=== PATIENT | female | born 1975 | race Caucasian/White ===

== ENCOUNTER → 2021-08-13 11:00 | Outpatient (BNVA) | payer SELFPAY | PROVIDERS: PCP Nurse Practitioner Family; Referring Provider Nurse Practitioner Family; Visit Provider Nurse Practitioner | DX: S06.5X9S Traumatic subdural hemorrhage with loss of consciousness of unspecified duration, sequela (principal); R40.2431 Glasgow coma scale score 3-8, in the field [EMT or ambulance]; V86.0 Driver of special all-terrain or other off-road motor vehicle injured in traffic accident; F17.210 Nicotine dependence, cigarettes, uncomplicated; F10.20 Alcohol dependence, uncomplicated | CPT/HCPCS: 99204 ==

== ENCOUNTER → 2021-09-27 09:38 | Outpatient (BNVA) | payer SELFPAY | PROVIDERS: PCP Nurse Practitioner Family; Visit Provider Nurse Practitioner | DX: Z87.820 Personal history of traumatic brain injury (principal); F10.20 Alcohol dependence, uncomplicated; Z91.19 Patient's noncompliance with other medical treatment and regimen | CPT/HCPCS: 99213 ==

== ENCOUNTER → 2021-10-11 13:59 | Outpatient (BNVA) | payer SELFPAY | PROVIDERS: PCP Nurse Practitioner Family; Referring Provider Nurse Practitioner; Visit Provider Specialist | DX: R41.1 Anterograde amnesia (principal); S06.9X9S Unspecified intracranial injury with loss of consciousness of unspecified duration, sequela; Y93.9 Activity, unspecified | CPT/HCPCS: 95816 ==

== ENCOUNTER → 2022-01-13 13:59 | Outpatient (BNVA) | payer SELFPAY | PROVIDERS: PCP Nurse Practitioner Family; Visit Provider Nurse Practitioner Family | DX: R51.9 Headache, unspecified (principal); Z13.6 Encounter for screening for cardiovascular disorders; S06.9X9A Unspecified intracranial injury with loss of consciousness of unspecified duration, initial encounter; X58.XXXA Exposure to other specified factors, initial encounter | CPT/HCPCS: 80053; 80061; 84443; 85025 ==

== ENCOUNTER → 2022-08-17 11:31 | Outpatient (BNVA) | payer SELFPAY | PROVIDERS: Visit Provider Nurse Practitioner Family | DX: R11.2 Nausea with vomiting, unspecified (principal); K21.9 Gastro-esophageal reflux disease without esophagitis; Z13.6 Encounter for screening for cardiovascular disorders; S29.9XXA Unspecified injury of thorax, initial encounter; R07.81 Pleurodynia | CPT/HCPCS: 71100; 80053; 80061; 82607; 82746; 84443; 85025 ==

== ENCOUNTER 2022-09-16 08:30 | Emergency (ER) | payer MEDICAID, SELFPAY ==
[2022-09-16 08:34] VITALS: BP 139/99; PULSE 112; RESP 15; TEMP 36.9; O2SAT 98; BMI 21.9
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
--- NOTE | 2022-09-16 08:39 | ECG_ITS ---
[facility] Test Date: 2022-09-16 Pat Name: Radha Eddy Department: Room: Gender: Female Market Sales Manager: : 1975 Requested By: Roberto Goel Order Number: [id number] Jose MD: Blue Peters M.D. Measurements Intervals [place] Rate: 102 P: 83 MO: 136 QRS: 3 QRSD: 82 T: 67 QT: 351 QTc: 458 Interpretive Statements SINUS TACHYCARDIA POSSIBLE ANTERIOR MYOCARDIAL INFARCTION , PROBABLY OLD [30 ms Q WAVE IN V3/V4, OR R < 0.2 mV IN V4] ABNORMAL RHYTHM ECG No previous ECG available for comparison Electronically Signed On 09-19-2022 18:27:16 LIVERY CAR DRIVER by Blue Peters M.D. [id number]
[2022-09-16 08:58] LABS: Glucose Point of Care 95 mg/dL (70-110)
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
[2022-09-16 09:16] LABS: Basophils % 0.2 %; Eosinophils % 0.4 %; Hematocrit 37.8 % (37.0-47.0); Hemoglobin 13.1 g/dL (11.5-15.3); Lymphocytes # 2.3 10^3/uL (0.8-4.8); Lymphocytes % 22.3 %; Mean Corpuscular HGB Conc 34.7 g/dL (30.0-36.0); Mean Corpuscular Hemoglobin 35.8 pg (28.0-34.0); Mean Corpuscular Volume 103.3 fl (81-99); Mean Platelet Volume 9.7 fL (7.4-10.4); Monocytes # 0.8 10^3/uL (0.2-0.9); Monocytes % 7.4 %; Neutrophils # 7.14 10^3/uL (1.8-7.7); Neutrophils % 68.1 %; Nucleated Red Blood Cells % 0 %; Platelet Count 265 10^3/cmm (130-400); Red Blood Count 3.66 10^6/uL (4.1-5.3); Red Cell Distribution Width 12.2 % (12.1-15.1); White Blood Count 10.5 10^3/uL (4.0-10.0)
[2022-09-16 09:31] LABS: Alanine Aminotransferase 21 U/L (0-33); Albumin Level 2.8 g/dL (3.5-5.2); Alkaline Phosphatase 149 U/L (35-105); Aspartate Amino Transferase 33 U/L (0-32); Blood Urea Nitrogen 8 mg/dL (6-20); Calcium 9.2 mg/dL (8.5-10.5); Carbon Dioxide 27 mmol/L (22-29); Chloride 94 mmol/L (98-107); Glomerular Filtration Rate 88.9 mL/min (90-130); Glucose 102 mg/dL (65-115); Osmolality Calculated 275 mOsm/kg (285-295); Sodium 133 mmol/L (136-145); Total Bilirubin 0.6 mg/dL (0.15-1.2); Total Protein 6.8 g/dL (6.6-8.7)
[2022-09-16 09:34] VITALS: BP 152/103; O2SAT 100
[2022-09-16 10:00] VITALS: BP 161/99; O2SAT 100
[2022-09-16 10:30] VITALS: BP 161/99; O2SAT 99
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
== END 2022-09-16 10:44 | disposition home or self-care (01) ==
PROVIDERS: Emergency Provider Family Medicine; PCP Nurse Practitioner Family
DX: F44.9 Dissociative and conversion disorder, unspecified (principal); Z87.820 Personal history of traumatic brain injury
CPT/HCPCS: 36416; 70450; 71045; 80053; 82962; 85025; 93005; 99285

== ENCOUNTER → 2022-10-27 10:35 | Outpatient (BNVA) | payer MEDICAID, SELFPAY | PROVIDERS: PCP Nurse Practitioner Family; Visit Provider Nurse Practitioner Family | DX: N39.0 Urinary tract infection, site not specified (principal); Z87.440 Personal history of urinary (tract) infections; Z87.820 Personal history of traumatic brain injury; R26.9 Unspecified abnormalities of gait and mobility; M62.40 Contracture of muscle, unspecified site; R29.818 Other symptoms and signs involving the nervous system; R29.898 Other symptoms and signs involving the musculoskeletal system; F99 Mental disorder, not otherwise specified; E87.6 Hypokalemia; E53.8 Deficiency of other specified B group vitamins; R25.1 Tremor, unspecified | CPT/HCPCS: 80053; 81000; 85025 ==

== ENCOUNTER 2022-12-21 08:45 | Outpatient (CLI) | payer MEDICAID, SELFPAY ==
--- NOTE | 2022-12-21 08:45 | MR_ITS ---
WS: [id number] MRI BRAIN WITH AND WITHOUT CONTRAST HISTORY: R27.0 - Ataxia, unspecified, history of posttraumatic brain injury 2 years ago. COMPARISON: CT head 09/16/2022 TECHNIQUE: Multiplanar imaging performed through the brain with MultiHance 13 ml's IV. Diffusion imaging is normal. No acute infarct. Seen best on the FLAIR and T2 sequences is increased s ignal in the cortex of the RIGHT temporal lobe. There is mild volume loss. These changes are most con sistent with post traumatic brain injury with gliosis. There are a few small, nonspecific T2 foci abo ve the LEFT lateral ventricle in the white matter. No posterior fossa abnormality. No evidence for acute hemorrhage. Mild atrophy. Ventricles and extra-axial spaces are normal. Clivus and pituitary gland are normal. Visualized posterior fossa and brainstem are also normal. Postcontrast images are negative for masses or vascular malformations. Previously described possible meningioma towards the LEFT vertex does not enhance. This is probably benign calcification. There is a filling defect within the LEFT transverse sinus extending into the sigmoid sinus. This is a central filling defect and may be related to a chronic cerebral venous thrombosis. Paranasal sinuses: Very mild mucoperiosteal thickening throughout the paranasal sinuses. No air-fluid levels. Mastoid air cells: Bilateral mastoid air cell effusions, LEFT greater than RIGHT. Calvarium and scalp: Normal. MR/MR head wo/w con [id number] IMPRESSION: 1. No acute infarct. 2. Cortical signal abnormality in the RIGHT temporal lobe from gliosis. Consis tent with patient's history of prior brain trauma. No hemorrhage. 3. Filling defect within a small caliber LEFT transverse sinus and sigmoid sin us. Differential includes chronic DVT, less likely artifact from flow void. The re are no associated areas of venous infarct or hemorrhage. Consider follow-up MR venogram. 4. Mild bilateral mastoid air cell effusions.
== END 2022-12-21 08:46 | disposition home or self-care (01) ==
PROVIDERS: PCP Nurse Practitioner Family; Visit Provider Nurse Practitioner
DX: R27.0 Ataxia, unspecified (principal); R29.6 Repeated falls
CPT/HCPCS: 70553; A9577

== ENCOUNTER → 2023-02-06 14:19 | Outpatient (BNVA) | payer MEDICAID, SELFPAY | PROVIDERS: PCP Nurse Practitioner Family; Visit Provider Nurse Practitioner Family | DX: R05.9 Cough, unspecified (principal); R63.4 Abnormal weight loss; R11.0 Nausea; E53.8 Deficiency of other specified B group vitamins | CPT/HCPCS: 71046; 80053; 80061; 82607; 82746; 83615; 84443; 85025 ==

== ENCOUNTER 2023-02-14 14:36 | Outpatient (CLI) | payer MEDICAID, SELFPAY ==
--- NOTE | 2023-02-14 14:30 | MR_ITS ---
WS: [id number] MRI VENOGRAPHY WITHOUT GADOLINIUM ENHANCEMENT INDICATION: TIA and sepsis. Weakness upper extremities. Aphasia. gait changes TECHNIQUE: MR venography without gadolinium enhancement. Coronal 2-D [id number] and axial 2-D warner e-of-flight imaging. COMPARISON: MRI December 21, 2022 FINDINGS: Prior MRI was reviewed. Filling defect in the distal LEFT jugular vein extending into the s igmoid sinus and LEFT transverse sinus more prominent at the skull base. Today's examination demonstr ates small caliber LEFT transverse sinus with poor flow in the sigmoid sinus and distal LEFT jugular vein compatible with dural sinus thrombosis. RIGHT jugular vein is patent at the skull base. Normal RIGHT sigmoid sinus and transverse sinus. Norm al sagittal sinus. Straight sinus is patent. Normal internal cerebral veins. MR/[place] [id number] IMPRESSION: 1. Findings compatible with dural venous sinus thrombosis involving the LEFT s igmoid and transverse sinus extending into the distal jugular vein. Recommend u ltrasound of the neck to evaluate the LEFT neck jugular vein for thrombus. 2. Dural venous sinuses are otherwise patent. 3. No other suspicious findings.
== END 2023-02-14 14:37 | disposition home or self-care (01) ==
LOC: RAD 14:41
PROVIDERS: PCP Nurse Practitioner Family; Visit Provider Specialist
DX: R27.0 Ataxia, unspecified (principal); R29.6 Repeated falls; R93.0 Abnormal findings on diagnostic imaging of skull and head, not elsewhere classified
CPT/HCPCS: 70544

== ENCOUNTER → 2023-04-25 10:51 | Outpatient (BNVA) | payer MEDICAID, SELFPAY | PROVIDERS: PCP Nurse Practitioner Family; Visit Provider Nurse Practitioner Family | DX: E87.6 Hypokalemia (principal) | CPT/HCPCS: 80053 ==

== ENCOUNTER 2023-05-05 07:40 | Outpatient (CLI) | payer MEDICAID, SELFPAY ==
--- NOTE | 2023-05-05 08:15 | USCV_ITS ---
Radha Eddy Age: 48 Gender: F : 1975 Exam Date: 05/05/2023 08:24 Ordering Phys: Monie Shafer MD Technologist: TORREY Exam Location: [facility] [place] Indication: Eval for jugular thrombus. TBI HISTORY: Eval for jugular thrombus. TBI PROCEDURES: Venous duplex imaging was performed in bilateral upper extremities. The following venous structures were evaluated: internal jugular vein, subclavian vein, axillary vein, and brachial veins. In addition, the basilic vein, cephalic vein, radial vein, and ulnar vein. FINDINGS: Normal 2-D, color Doppler and phasicity noted in the bilateral upper extremity venous system extending from the internal jugular veins through the main forearms. No thrombosis or occlusion noted. CONCLUSIONS No bilateral upper extremity DVT. Dr. Cori Maria DO (Electronically Signed) Final Date: 05 May 2023 10:20 S
== END 2023-05-05 07:41 | disposition home or self-care (01) ==
LOC: RAD 07:43
PROVIDERS: PCP Nurse Practitioner Family; Visit Provider Psychiatry & Neurology Neurology
DX: S06.9X9A Unspecified intracranial injury with loss of consciousness of unspecified duration, initial encounter (principal); X58.XXXA Exposure to other specified factors, initial encounter; Z13.6 Encounter for screening for cardiovascular disorders
CPT/HCPCS: 93970

== ENCOUNTER → 2023-07-18 13:48 | Outpatient (BNVA) | payer MEDICAID, SELFPAY | PROVIDERS: PCP Nurse Practitioner Family; Visit Provider Psychiatry & Neurology Neurology | DX: S09.90XS Unspecified injury of head, sequela (principal); R27.0 Ataxia, unspecified; G08 Intracranial and intraspinal phlebitis and thrombophlebitis; G44.309 Post-traumatic headache, unspecified, not intractable; X58.XXXS Exposure to other specified factors, sequela | CPT/HCPCS: 80053; 82306; 82607; 82746; 83090; 83735; 83921; 84439; 84443; 84481; 85300; 85610; 86140; 86147; 86160; 86162; 86235; 86255; 86376; 86431 ==

== ENCOUNTER 2023-08-17 07:20 | Outpatient (CLI) | payer MEDICAID, SELFPAY ==
--- NOTE | 2023-08-17 07:24 | MR_ITS ---
WS: [id number] MRI BRAIN WITHOUT CONTRAST HISTORY: S06.9X9A - Unspecified intracranial injury with loss of c... COMPARISON: 12/19/2022 TECHNIQUE: Diffusion imaging, multiplanar T1, T2 and FLAIR imaging obtained. No evidence for acute infarct or hemorrhage. Jimenez-white matter differentiation is normal. Mild increased signal in the cortex of the RIGHT temporal lobe with mild volume loss. Similar to the prior examination. This is probably posttraumatic in etiology. No additional abnormalities are identi fied. There is only mild atrophy. No prior infarct. Ventricles and extra-axial spaces are normal. No inferior displacement of cerebellar tonsils. The sella turcica and pituitary gland are unremarkabl e. Normal appearance of the [place] on this unenhanced exam. The dural venous sinuses are not a s well visualized on this unenhanced exam. Venogram was performed separately today. Please see that r eport. Paranasal sinuses: Progression of paranasal sinus disease since the prior examination. Diffuse mucope riosteal thickening greatest involving the maxillary sinuses and sphenoid sinuses. No air-fluid level s. Mastoid air cells: Progression of fluid bilaterally within the mastoid air cells. Calvarium and scalp: Intact. IMPRESSION: 1. No acute intracranial hemorrhage or infarct. 2. Stable RIGHT temporal lobe cortical prior ischemic change. Stable since the prior examination of 12/21/2022. Probably posttraumatic due to the patient's history. 3. Progression of sinusitis and mastoid air cell effusions.
--- NOTE | 2023-08-17 07:30 | MR_ITS ---
WS: [id number] MR VENOGRAPHY HEAD 3-D noncontrast imaging performed through the cerebral veins. All imaging is reviewed. HISTORY: S06.9X9A - Unspecified intracranial injury with loss of c..., Hypoxia neuropathy. COMPARISON: Venogram 02/14/2023 and prior MRI brain 12/21/2022 Demonstration of the dural venous sinuses is limited. Previously described filling defects in the LEF T jugular vein and the sigmoid sinus and transverse sinus are reidentified. There is a very small vladislav iber LEFT transverse sinus with poor flow. Very similar appearance as the prior examination. Very sma ll caliber LEFT transverse sinus and sigmoid sinus with filling defects. The prior examination was a much better quality exam. These findings are most likely due to chronic thrombosis. The superior sagi ttal sinus appears normal. Reidentified is a flow artifact in the RIGHT sigmoid sinus. RIGHT jugular vein is patent at the skull base. Normal RIGHT sigmoid sinus and transverse sinus. Straight sinus is normal. IMPRESSION: 1. No significant interval change in the chronic appearing dural venous thrombosis involving the LEFT sigmoid and transverse sinus. 2. The remaining dural venous sinuses are unchanged.
== END 2023-08-17 07:21 | disposition home or self-care (01) ==
PROVIDERS: PCP Nurse Practitioner Family; Visit Provider Psychiatry & Neurology Neurology
DX: S06.9X9A Unspecified intracranial injury with loss of consciousness of unspecified duration, initial encounter (principal); X58.XXXA Exposure to other specified factors, initial encounter; G08 Intracranial and intraspinal phlebitis and thrombophlebitis; R27.0 Ataxia, unspecified
CPT/HCPCS: 70544; 70551

== ENCOUNTER 2024-01-13 21:04 | Emergency (ER) | payer MEDICAID, SELFPAY ==
[2024-01-13 21:07] VITALS: BP 123/75; PULSE 103; RESP 18; TEMP 37.1; O2SAT 98; BMI 17.5
[2024-01-13 21:26] LABS: Basophils % 0.7 %; Eosinophils # 0.4 10^3/uL (0.0-0.8); Eosinophils % 6.9 %; Hematocrit 39.3 % (36-47); Lymphocytes # 0.8 10^3/uL (0.8-4.8); Lymphocytes % 12.3 %; Mean Corpuscular HGB Conc 33.3 g/dL (30-55); Mean Corpuscular Hemoglobin 30.8 pg (27-33); Mean Corpuscular Volume 92.3 fl (85-98); Monocytes # 0.3 10^3/uL (0.2-0.9); Monocytes % 5.4 %; Neutrophils # 4.52 10^3/uL (1.8-7.7); Neutrophils % 74.4 %; Nucleated Red Blood Cells % 0 %; Platelet Count 210 10^3/cmm (157-399); Red Blood Count 4.26 10^6/uL (3.85-5.65); Red Cell Distribution Width 12.4 % (12.1-15.1); White Blood Count 6.08 10^3/uL (3.29-11.43)
[2024-01-13] MEDS: haloperidol inj 5 mg/mL INJ 1 mL 3 MG IVP (21:31)
[2024-01-13] MEDS: sodium chloride 0.9% 1,000 ML 999 ML IV ×2 (21:31→21:47)
[2024-01-13] MEDS: ondansetron 2 mg/ML SDV 2 mL 4 MG IVP (21:31)
--- NOTE | 2024-01-13 21:38 | PC.NURSE ---
Pt. has had no vomiting or nausea since phenergan given in ambulance. Pt. is laughing and joking with family on arrival
[2024-01-13 21:41] LABS: HCG, Serum Qual Negative (Negative)
[2024-01-13 21:46] LABS: Lactic Sepsis W/Reflex 3.8 mmol/L (0.5-2.2)
[2024-01-13 21:47] LABS: Alanine Aminotransferase 9 U/L (0-33); Albumin Level 3.9 g/dL (3.5-5.2); Alcohol Level 119 mg/dL (0-10); Alkaline Phosphatase 74 U/L (35-105); Anion Gap 19.3 (5-19); Aspartate Amino Transferase 16 U/L (0-32); Blood Urea Nitrogen 4 mg/dL (6-20); Calcium 8.6 mg/dL (8.5-10.5); Carbon Dioxide 23 mmol/L (22-29); Chloride 106 mmol/L (98-107); Creatinine Clr Calc Pharmacy 67.4714; Globulin 3.1 g/dL (1.3-4.6); Glomerular Filtration Rate 75.9 mL/min (90-130); Glucose 79 mg/dL (65-115); Lipase 20 U/L (13-60); Osmolality Calculated 296 mOsm/kg (285-295); Potassium 3.3 mmol/L (3.5-5.1); Sodium 145 mmol/L (136-145); Total Bilirubin 0.4 mg/dL (0.15-1.2)
--- NOTE | 2024-01-13 21:55 | ED_ITS ---
HPI - Headache 2 General: Chief Complaint: Headache Stated Complaint: ETOH, n/v Time Seen by Provider: 01/13/24 21:06 History of Present Illness: 48-year-old female with a history compli cated by traumatic hemorrhagic brain injury, cavernous sinus clot, chronic headaches, ataxia, presenting with headache and vomiting today. She notes that she has vomited at least 10 times. She has had some alcohol, unclear as to how much. 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 Evidently she is not because of the history of brain hemorrhage from trauma. She notes that she has had these episodes before, up to monthly, but the headache associated usually is not this bad. She has had promethazine at home, and in the ambulance without relief. Associated symptoms: Reports nausea and vomiting; Deny chest pain or fever(s) Review of Systems 2 Const: Denies: fever(s) Eyes: Reports: photophobia; Denies: change in vision Card: Denies: chest pain Resp: Denies: dyspnea GI: Reports: nausea and vomiting; Denies: abdominal pain or hematemesis Neuro: Reports: headache(s) and frequent falls (Chronic); Denies: numbness in extremities Psych: Reports: anxiety PFSH ED 2 PFSH: Medical History Psychiatric care Macrocytosis Frequent falls Ataxia SDH (subdural hematoma) Traumatic brain injury Surgical History No significant past surgical history Social History Smoking and tobacco/nicotine status: former use of tobacco/nicotine Quit status (tobacco/nicotine): has quit using Year quit tobacco: 2020 Former quit date comment: smoked 3 years Second hand smoke exposure: No Substance/Drug Use: never Adopted: No Caregiver/support person: No Lives independently: Yes Household members: spouse Housing: House Marital status: Number of children: 4 Highest education level completed: High School Graduate service: No Current occupational status: unemployed Physical Exam 2 Const: GENERAL APPEARANCE: disheveled, ill appearing and frail appearing (Somewhat) HENMT: COMMON NORMALS: normocephalic and Normal external nose present HEAD & SCALP: normocephalic FACE & SINUS: normal facial exam NOSE: Normal external nose present Eye: COMMON NORMALS: EOMs intact bilaterally Neck/C-Spine: GENERAL: Yes trachea midline Chest: CHEST: Yes Symmetrical chest wall rise Resp: COMMON NORMALS: normal respiratory effort, No use of accessory muscles and clear to auscultation bilaterally AUSCULTATION: clear to auscultation bilaterally Cardio: COMMON NORMALS: regular rhythm RATE: tachycardic RHYTHM: regular rhythm GI: COMMON NORMALS: Normal to inspection, nondistended, normoactive bowel sounds present and non-tender Extremity: COMMON NORMALS: no pedal edema Neuro: PRAFUL COMA SCALE: document GCS findings Praful coma scale eye opening: Spontaneous Praful coma scale verbal response: Orientated Praful coma scale motor response: Obey commands [place] coma scale total score: 15 GAIT: Yes Ataxic gait present MOTOR EXAM: Abnormal muscle tone present hypertonic: all Psych: ATTITUDE: Yes Other attitude/behavior findings present (Psych) (Anxious) Course 2 Vital Signs: Vital signs: Vital Signs Temperature 98.8 F 01/13/24 21:07 Pulse Rate 103 H 01/13/24 21:07 Respiratory Rate 18 01/13/24 21:07 Blood Pressure 123/75 01/13/24 21:07 Pulse Oximetry 98 01/13/24 21:07 Oxygen Delivery Me thod Room Air 01/13/24 21:07 MDM - Headache Medical Decision Making Observed gait is ataxic. She is somewhat twitchy and spastic in the bed, but has no focal neurological deficits. Her lactic acid is elevated, but without significant gap or acidosis, and potassium is mildly low. These are consistent with vomiting. However, CRP is 3, white blood cell count is 6. Her ethyl alcohol level is 119. She is given 2 L of fluid here, haloperidol and Zofran for nausea and vomiting, which has stopped currently. She still having some headache pain. Patient was given Depacon IV for headache with some improvement. She has been up to the bathroom. She is feeling improved and wishing to go home. CT venogram is performed showing chronic thrombosis of the left sigmoid sinus similar in appearance to 2022. No acute findings. Will allow home to return for any problems. Lab Data 01/13/24 21:19 01/13/24 21:19 Radiology Impressions Head CTA 01/13/24 22:45 IMPRESSION: 1. No acute intracranial abnormality identified. 2. Chronic thrombosis of the left sigmoid sinus extending into the left jugular bulb, with chronic small caliber left transverse sinus. Appearance similar to 2022. 3. Stable mild encephalomalacia along the lateral right temporal lobe. 4. Mild chronic sinusitis involving the ethmoid, maxillary, and sphenoid sinuses. No air-fluid levels. Laboratory Results WBC 6.08 10^3/uL (3.29-11.43) 01/13/24 21:19 RBC 4.26 10^6/uL (3.85-5.65) 01/13/24 21:19 Hgb 13.10 g/dL (11.27-16.99) 01/13/24 21:19 Hct 39.3 % (36-47) 01/13/24 21:19 MCV 92.3 fl (85-98) 01/13/24 21:19 MCH 30.8 pg (27-33) 01/13/24 21: MCHC 33.3 g/dL (30-55) 01/13/24 21:19 RDW 12.4 % (12.1-15.1) 01/13/24 21:19 Plt Count 210 10^3/cmm (157-399) 01/13/24 21:19 MPV 10.0 fL (7.4-10.4) 01/13/24 21:19 Neut % (Auto) 74.4 % 01/13/24 21:19 Lymph % (Auto) 12.3 % 01/13/24 21:19 [place] % (Auto) 5.4 % 01/13/24 21:19 Eos % (Auto) 6.9 % 01/13/24 21:19 Baso % (Auto) 0.7 % 01/13/24 21:19 Neut # (Auto) 4.52 10^3/uL (1.8-7.7) 01/13/24 21:19 Lymph # (Auto) 0.8 10^3/uL (0.8-4.8) 01/13/24 21:19 [place] # (Auto) 0.3 10^3/uL (0.2-0.9) 01/13/24 21:19 Eos # (Auto) 0.4 10^3/uL (0.0-0.8) 01/13/24 21:19 Baso # (Auto) 0.0 10^3/uL (0.0-0.1) 01/13/24 21:19 Nucleated RBC % (auto) 0 % 01/13/24 21:19 Nucleated RBCs # 0.0 /100WBC 01/13/24 21:19 Sodium 145 mmol/L (136-145) 01/13/24 21:19 Potassium 3.3 mmol/L (3.5-5.1) L 01/13/24 21:19 Chloride 106 mmol/L (98-107) 01/13/24 21:19 Carbon Dioxide 23 mmol/L (22-29) 01/13/24 21:19 Anion Gap 19.3 (5-19) H 01/13/24 21:19 BUN 4 mg/dL (6-20) L 01/13/24 21:19 Creatinine 0.8 mg/dL (0.5-0.9) 01/13/24 21:19 GFR Calculation 75.9 mL/min (90-130) L 01/13/24 21:19 Glucose 79 mg/dL (65-115) 01/13/24 21:19 Calculated Osmolality 296 mOsm/kg (285-295) H 01/13/24 21:19 Lactic Acid 3.8 mmol/L (0.5-2.2) H 01/13/24 21:19 Calcium 8.6 mg/dL (8.5-10.5) 01/13/24 21:19 Total Bilirubin 0.4 mg/dL (0.15-1.2) 01/13/24 21:19 AST 16 U/L (0-32) 01/13/24 21:19 ALT 9 U/L (0-33) 01/13/24 21:19 Alkaline Phosphatase 74 U/L (35-105) 01/13/24 21:19 C-Reactive Protein 3.0 mg/L (0.0-4.9) 01/13/24 21:19 Total Protein 7.0 g/dL (6.6-8.7) 01/13/24 21:19 Albumin 3.9 g/dL (3.5-5.2) 01/13/24 21:19 Globulin 3.1 g/dL (1.3-4.6) 01/13/24 21:19 Lipase 20 U/L (13-60) 01/13/24 21:19 HCG, Qual Negative (Negative) 01/13/24 21:19 Ethyl Alcohol 119 mg/dL (0-10) H 01/13/24 21:19 All radiology interpretation(s) finalized by discharge Discharge Plan Discharge Patient Disposition: Home Clinical Impression: Headaches due to old head injury, Cerebral venous sinus thrombosis Condition: Stable Prescriptions: New ondansetron 4 mg tablet,disintegrating 4 mg PO Q6H PRN (Reason: nausea and vomiting) Qty: 14 0RF No Action tizanidine 4 mg capsule 4 mg PO BID PRN (Reason: muscle spasticity) Qty: 90 2RF Rx Instructions: Take two tablet before bed nighly cholecalciferol (vitamin D3) 1,250 mcg (50,000 unit) capsule 50,000 unit PO .weekly Qty: 12 5RF potassium chloride [Klor-Con M20] 20 mEq tablet,ER particles/crystals 20 meq PO DAILY PRN Marijuana gummies 20 mg gel PO BID Rx Instructions: 2 10mg gummies gabapentin 100 mg capsule 100 mg PO TID Rx Instructions: Take two capsules by mouth three times daily. promethazine 25 mg tablet 25 mg PO TID PRN (Reason: nausea and vomiting) Qty: 60 2RF cetirizine [Zyrtec] 10 mg tablet 10 mg PO DAILY PRN (Reason: allergy symptoms) Qty: 30 11RF mecobalamin (vitamin B12) 1,000 mcg tablet,disintegrating See Rx Instructions .ROUTE .COMPLEX Qty: 30 2RF Dose Instruction: DISSOLVE ONE TABLET BY MOUTH DAILY Rx Instructions: DISSOLVE ONE TABLET BY MOUTH DAILY Discharge Orders: Discharge ED (Routine); Ordered 01/13/24 Ordered By: Yadiel Garcia Referrals: Franny Michel FNP-C [Primary Care Provider] - 1-3 days Patient Instructions: Acute Headache (ED), Opioid Safety, Pain Management Activity Restrictions/Additional Instructions: Given your vomiting, follow a clear liquid diet for the next 12 hours, then increase as tolerated. Consider taking nausea medication for the next 24 hours scheduled whether nauseated or not to keep your stomach settled. Return for any problems. See your doctor next week. Coding Level of Care Code ED Construction Materials Tester for Beata Baez
[2024-01-13] MEDS: valproic acid inj 500 MG in sodium chloride 0.9% 50 ML 55 MG IV (22:38)
--- NOTE | 2024-01-13 22:45 | CTR_ITS ---
PROCEDURE INFORMATION: Exam: CTA Head With Contrast, Venography Exam date and time: 01/13/2024 10:59 PM Age: 48 years old Clinical indication: Pain; Headache; Patient HX: CURTIS with n/v. History of cereberal venous sinus thrombus. ; Additional info: CURTIS. Known cavernous dvt. Venous phase instead of arterial. Previous imaging reports note left transverse sinus and sigmoid sinus thrombus. TECHNIQUE: Imaging protocol: Computed tomography angiography of the head with contrast. Exam focused on the veins. 3D rendering (Not supervised by radiologist): MIP and/or 3D reconstructed images were created by the technologist. Radiation optimization: All CT scans at this facility use at least one of these dose optimization techniques: automated exposure control; mA and/or kV adjustment per patient size (includes targeted exams where dose is matched to clinical indication); or iterative reconstruction. Contrast material: OMNI 350; Contrast volume: 100 ml; Contrast route: INTRAVENOUS (IV); COMPARISON: 1. MR head wo con* 08/17/2023 7:58 AM 2. MR venography head wo 08/17/2023 7:36 AM 3. MR venography head wo 02/14/2023 3:11 PM 4. MR head wo/w con 12/21/2022 9:11 AM RADIATION DOSE METRICS: Total DLP (mGy-cm): 2123.16 FINDINGS: Superior sagittal sinus: Patent. Straight sinus: Patent. Transverse sinuses: Persistent small caliber left transverse sinus. Patent right transverse sinus. Sigmoid sinuses: Persistent chronic thrombosis of the left sigmoid sinus. Patent right sigmoid sinus. Internal jugular veins: Persistent chronic thrombosis of the left jugular bulb, with very diminutive visualized superior portion of the left internal jugular vein. Visualized portion of the right internal jugular vein widely patent. Veins: No obvious cavernous sinus thrombosis. Brain: No acute intracranial hemorrhage or acute large territory infarct. Stable mild encephalomalacia along the lateral right temporal lobe. No midline shift. No abnormal extra-axial fluid collection. Cerebral ventricles: No ventriculomegaly. Bones/joints: Mild chronic sinusitis involving the ethmoid, maxillary, and sphenoid sinuses. No air-fluid levels. Soft tissues: Unremarkable. CT/CT angio head 37222 IMPRESSION: 1. No acute intracranial abnormality identified. 2. Chronic thrombosis of the left sigmoid sinus extending into the left jugular bulb, with chronic small caliber left transverse sinus. Appearance similar to 2022. 3. Stable mild encephalomalacia along the lateral right temporal lobe. 4. Mild chronic sinusitis involving the ethmoid, maxillary, and sphenoid sinuses. No air-fluid levels.
[2024-01-13] MEDS: iohexol 350 mg/mL 500 mL Btl (per mL) IV (23:02)
[2024-01-13 23:10] LABS: Reflex Lactate Order REFLEX LACTIC ORDERD
[2024-01-13 23:46] LABS: Add Urine Microscopic? NO; Charge for UA Resulting for Rev
[2024-01-13 23:50] LABS: Lactic Acid level (Lactate) 2.9 mmol/L (0.5-2.2)
[2024-01-13 23:54] LABS: Bilirubin Urine Neg (Negative); Blood Urine Neg (Negative); Glucose Urine UA Norm (Normal); Ketones Urine Negative (Negative); Leukocyte Esterase Urine Negative (Negative); Nitrate Urine Negative (Negative); Protein Urine Neg (Negative); Sulfosalicylic Acid Urine Negative (Negative); Urine Appearance Clear (CLEAR); Urine Color Colorless (Yellow); Urobilinogen Urine Neg (Negative); pH Urine 8 (5-7)
[2024-01-14 00:12] LABS: Amphetamines Screen Urine Negative (Negative); Barbiturates Screen Urine Negative (Negative); Benzodiazepines Screen Urine Negative (Negative); Cocaine Screen Urine Negative (Negative); Opiate Screen Urine Negative (Negative); PCP Screen Urine Negative (Negative); THC Screen Urine Positive (Negative)
== END 2024-01-14 00:02 | disposition home or self-care (01) ==
PROVIDERS: Emergency Provider Emergency Medicine; PCP Nurse Practitioner Family
DX: G44.89 Other headache syndrome (principal); G08 Intracranial and intraspinal phlebitis and thrombophlebitis; Z87.820 Personal history of traumatic brain injury; Z87.891 Personal history of nicotine dependence
CPT/HCPCS: 36415; 70496; 80053; 80306; 80307; 81003; 83605; 83690; 84703; 85025; 86140; 96365; 96375; 99285; J1630; J2405; J3411; J3490; J7030; Q9967

== ENCOUNTER → 2024-06-24 10:53 | Outpatient (BNVA) | payer MEDICAID, SELFPAY | PROVIDERS: PCP Nurse Practitioner Family; Visit Provider Nurse Practitioner Family | DX: G08 Intracranial and intraspinal phlebitis and thrombophlebitis (principal); S06.9XAD Unspecified intracranial injury with loss of consciousness status unknown, subsequent encounter; F32.A Depression, unspecified; E55.9 Vitamin D deficiency, unspecified; Z87.820 Personal history of traumatic brain injury; R11.0 Nausea; F43.12 Post-traumatic stress disorder, chronic | CPT/HCPCS: 80053; 80061; 82306; 82607; 84443; 85025 ==

== ENCOUNTER → 2024-07-29 15:27 | Outpatient (BNVA) | payer MEDICAID, SELFPAY | PROVIDERS: PCP Nurse Practitioner Family; Visit Provider Nurse Practitioner | DX: N18.2 Chronic kidney disease, stage 2 (mild) (principal) | CPT/HCPCS: 80048 ==

== ENCOUNTER 2024-09-15 20:50 | Observation (INO) | payer MEDICAID, SELFPAY ==
--- NOTE | 2024-09-15 20:53 | ECG_ITS ---
[employer] Test Date: 2024-09-15 Pat Name: Radha Eddy Department: Room: 276 Gender: Female [place]: : 1975 Requested By: Bharat Dunbar Order Number: [id number] Jose MD: Aden Charles M.D. Measurements Intervals [place] Rate: 56 P: 32 TX: 140 QRS: 2 QRSD: 100 T: 19 QT: 489 QTc: 473 Interpretive Statements SINUS BRADYCARDIA POSSIBLE ANTERIOR MYOCARDIAL INFARCTION , OF INDETERMINATE AGE [30 ms Q WAVE IN V3/V4, OR R < 0.2 mV IN V4] nonspecific ST changes Compared to ECG 09/16/2022 08:46:00 Sinus tachycardia no longer present Myocardial infarct finding still present Electronically Signed On 09-16-2024 19:36:18 SUPERVISOR OF COMMUNICATIONS by Aden Charles M.D. [email or web address]
[2024-09-15 20:54] VITALS: BP 78/48; PULSE 56; RESP 14; TEMP 36.4; O2SAT 95; BMI 19.8
[2024-09-15 21:00] VITALS: BP 92/52; PULSE 54; RESP 11; O2SAT 95
[2024-09-15 21:28] LABS: Basophils % 0.2 %; Eosinophils # 0.3 10^3/uL (0.0-0.8); Eosinophils % 6.6 %; Hematocrit 34.8 % (36-47); Lymphocytes # 1.9 10^3/uL (0.8-4.8); Mean Corpuscular HGB Conc 33.9 g/dL (30-55); Mean Corpuscular Hemoglobin 28.7 pg (27-33); Mean Corpuscular Volume 84.7 fl (85-98); Mean Platelet Volume 10.1 fL (7.4-10.4); Monocytes # 0.3 10^3/uL (0.2-0.9); Monocytes % 4.8 %; Neutrophils % 52.2 %; Nucleated Red Blood Cells % 0 %; Platelet Count 244 10^3/cmm (157-399); Red Blood Count 4.11 10^6/uL (3.85-5.65); Red Cell Distribution Width 12.7 % (12.1-15.1); White Blood Count 5.17 10^3/uL (3.29-11.43)
[2024-09-15] MEDS: sodium chloride 0.9% 1,000 ML 999 ML IV (21:34)
[2024-09-15] MEDS: hydrocortisone 100 mg/2 mL SDV IVP (21:34)
[2024-09-15 21:44] LABS: Lactic Sepsis W/Reflex 1.8 mmol/L (0.5-2.2)
[2024-09-15 21:56] LABS: Alanine Aminotransferase 15 U/L (0-33); Albumin Level 3.4 g/dL (3.5-5.2); Alkaline Phosphatase 84 U/L (35-105); Anion Gap 11.8 (5-19); Aspartate Amino Transferase 9 U/L (0-32); Blood Urea Nitrogen 10 mg/dL (6-20); C Reactive Protein 6.7 mg/L (0.0-4.9); Calcium 9.1 mg/dL (8.5-10.5); Carbon Dioxide 28 mmol/L (22-29); Chloride 100 mmol/L (98-107); Creatine Phosphokinase 25 U/L (26-192); Creatinine Clr Calc Pharmacy 67.5909; Globulin 2.8 g/dL (1.3-4.6); Glucose 108 mg/dL (65-115); Magnesium 1.6 mg/dL (1.7-2.3); Osmolality Calculated 284 mOsm/kg (285-295); Sodium 137 mmol/L (136-145); Thyroid Stimulating Hormone 1.08 uIU/mL (0.27-4.20); Total Bilirubin 0.4 mg/dL (0.15-1.2); Total Protein 6.2 g/dL (6.6-8.7)
[2024-09-15 21:58] LABS: Alcohol Level < 10 mg/dL (0-10); Potassium 2.8 mmol/L (3.5-5.1)
--- NOTE | 2024-09-15 22:16 | ED_ITS ---
HPI - Nausea/Vomiting/Diarrhea 2 General: Chief complaint: Nausea/Vomiting/Diarrhea Stated complaint: LOW BP Time Seen by Provider: 09/15/24 20:52 History of Present Illness: 49-year-old female presenting with vomit ing for the last couple of weeks. She had a low blood pressure at home, and was found to have a low blood pressure by EMS. She received 900 mL of lactated Ringer's on the way here. Her blood pressure still low. She is awake and talking. She says that this has happened in in the past, and she requires IV fluid and antiemetics for a couple of days. She denies abdominal pain. She denies headache. She has a history of a cavernous sinus thrombosis that is chronic, and has chronic headaches associated with this, but she does not currently. Related Data Home Medications Medication Instructions Recorded Confirmed Marijuana gummies 20 mg PO BID 09/12/23 09/15/24 gabapentin 100 mg capsule 100 mg PO TID 12/11/23 09/15/24 hydroxyzine HCl 50 mg tablet 50 mg PO QID PRN Anxiety 09/15/24 09/15/24 Previous Rx's Medication Instructions Recorded tizanidine 4 mg capsule 4 mg PO BID PRN muscle spasticity 07/18/23 #90 caps cholecalciferol (vitamin D3) 1,250 50,000 unit PO .weekly #12 caps 09/27/23 mcg (50,000 unit) capsule cetirizine 10 mg tablet (Zyrtec) 10 mg PO DAILY PRN allergy 12/11/23 symptoms #30 tabs mecobalamin (vitamin B12) 1,000 See Rx Instructions .Route 04/23/24 mcg disintegrating .COMPLEX #30 tabs tablet,sublingual propranolol 20 mg tablet 20 mg PO BID PRN anxiety #60 tabs 07/23/24 quetiapine 50 mg tablet (Seroquel) 50 mg PO .HS #30 tabs 07/23/24 magnesium oxide 400 mg PO BID #60 tabs 08/07/24 potassium chloride 8 mEq 8 meq PO DAILY #30 caps 08/07/24 capsule,extended release Allergies Allergy/AdvReac Type Severity Reaction Status Date / Time tree and shrub pollen Allergy Severe ALGY-Difficulty Verified 08/20/24 09:42 Breathing grass pollen Allergy Intermediate ALGY-Rash Verified 08/20/24 09:42 animal dander Allergy Mild ALGY-Difficulty Verified 08/20/24 09:42 Breathing fresh fruits Allergy Mild ALGY-Rash Uncoded 08/20/24 09:42 PFSH ED 2 PFSH: Medical History (Updated 09/16/24 @ 04:17 by Yadiel Garcia DO) Chronic post-traumatic stress disorder Cerebral venous sinus thrombosis Psychiatric care Macrocytosis Frequent falls Ataxia SDH (subdural hematoma) Traumatic brain injury Surgical History No significant past surgical history Social History Smoking and tobacco/nicotine status: former use of tobacco/nicotine Quit status (tobacco/nicotine): has quit using Year quit tobacco: 2020 Former quit date comment: smoked 3 years Second hand smoke exposure: No Substance/Drug Use: never Adopted: No Caregiver/support person: No Lives independently: Yes Household members: spouse Housing: House Marital status: Number of children: 4 Highest education level completed: High School Graduate service: No Current occupational status: unemployed Do you think of yourself as: Straight/Heterosexual Current gender identity: Female Noemy/Scientologist: Other Special noemy needs: No Agree to transfusion: Yes Physical Exam 2 Const: COMMON NORMALS: no acute distress GENERAL APPEARANCE: cooperative; not ill appearing and not frail appearing HENMT: COMMON NORMALS: normocephalic, atraumatic and Normal external nose present HEAD & SCALP: normocephalic and atraumatic FACE & SINUS: normal facial exam and face symmetric NOSE: Normal external nose present Eye: COMMON NORMALS: Equal, round and reactive pupils present and EOMs intact bilaterally PUPIL: Yes Equal, round and reactive pupils present Neck/C-Spine: GENERAL: Yes trachea midline Chest: CHEST: Yes Symmetrical chest wall rise Resp: COMMON NORMALS: normal respiratory effort, No retractions, No use of accessory muscles and clear to auscultation bilaterally AUSCULTATION: clear to auscultation bilaterally Cardio: COMMON NORMALS: regular rate and regular rhythm RATE: regular rate RHYTHM: regular rhythm GI: COMMON NORMALS: Normal to inspection, nondistended, normoactive bowel sounds present Extremity: COMMON NORMALS: no pedal edema Neuro: PRAFUL COMA SCALE: document GCS findings Praful coma scale eye opening: Spontaneous [place] coma scale verbal response: Orientated Praful coma scale motor response: Obey commands Praful coma scale total score: 15 S ENSORY EXAM: Yes extremities (intact) Psych: COMMON NORMALS: speech normal SPEECH: Yes normal speech Skin: COMMON NORMALS: no rashes or lesions noted GENERAL SKIN EXAM: no rashes or lesions noted Course 2 Vital Signs: Vital signs: Vital Signs Temperature 97.8 F 09/16/24 03:45 Pulse Rate 52 L 09/16/24 03:45 Respiratory Rate 19 H 09/16/24 03:45 Blood Pressure 123/76 09/16/24 03:45 Pulse Oximetry 95 09/16/24 03:45 Oxygen Delivery Me thod Room Air 09/16/24 03:45 MDM - Nausea/Vomiting/Diarrhea Medical Decision Making 2 L fluid bolus has been ordered. Blood pressure is still low. Her potassium is 2.8. This is repleted. TSH is 1. Ethyl alcohol is less than 10. Bicarbonate is 28. Creatinine is 0.9. Blood sugar is 108. Lactic acid is 1.8. Blood pressures remained soft after a total of 3 L of fluid. Drug screen is positive for marijuana which could be contributing to vomiting. Urinalysis is negative. CRP is only 6.7. With improvement in her blood pressure, she will be observed, she will go to the floor, for continued IV fluid hydration. Hospitalist has seen the patient in the ER. Lab Data 09/15/24 20:18 09/15/24 20:18 Laboratory Results WBC 5.17 10^3/uL (3.29-11.43) 09/15/24 20:18 RBC 4.11 10^6/uL (3.85-5.65) 09/15/24 20:18 Hgb 11.80 g/dL (11.27-16.99) 09/15/24 20:18 Hct 34.8 % (36-47) L 09/15/24 20:18 MCV 84.7 fl (85-98) L 09/15/24 20:18 MCH 28.7 pg (27-33) 09/15/24 20:18 MCHC 33.9 g/dL (30-55) 09/15/24 20:18 RDW 12.7 % (12.1-15.1) 09/15/24 20:18 Plt Count 244 10^3/cmm (157-399) 09/15/24 20:18 MPV 10.1 fL (7.4-10.4) 09/15/24 20:18 Neut % (Auto) 52.2 % 09/15/24 20:18 Lymph % (Auto) 36.0 % 09/15/24 20:18 [place] % (Auto) 4.8 % 09/15/24 20:18 Eos % (Auto) 6.6 % 09/15/24 20:18 Baso % (Auto) 0.2 % 09/15/24 20:18 Neut # (Auto) 2.70 10^3/uL (1.8-7.7) 09/15/24 20:18 Lymph # (Auto) 1.9 10^3/uL (0.8-4.8) 09/15/24 20:18 [place] # (Auto) 0.3 10^3/uL (0.2-0.9) 09/15/24 20:18 Eos # (Auto) 0.3 10^3/uL (0.0-0.8) 09/15/24 20:18 Baso # (Auto) 0.0 10^3/uL (0.0-0.1) 09/15/24 20:18 Nucleated RBC % (auto) 0 % 09/15/24 20:18 Nucleated RBCs # 0.0 /100WBC 09/15/24 20:18 Sodium 137 mmol/L (136-145) 09/15/24 20:18 Potassium 2.8 mmol/L (3.5-5.1) L* 09/15/24 20:18 Chloride 100 mmol/L (98-107) 09/15/24 20:18 Carbon Dioxide 28 mmol/L (22-29) 09/15/24 20:18 Anion Gap 11.8 (5-19) 09/15/24 20:18 BUN 10 mg/dL (6-20) 09/15/24 20:18 Creatinine 0.9 mg/dL (0.5-0.9) 09/15/24 20:18 GFR Calculation 66.0 mL/min (90-130) L 09/15/24 20:18 Glucose 108 mg/dL (65-115) 09/15/24 20:18 Calculated Osmolality 284 mOsm/kg (285-295) L 09/15/24 20:18 Lactic Acid 1.8 mmol/L (0.5-2.2) 09/15/24 20:18 Calcium 9.1 mg/dL (8.5-10.5) 09/15/24 20:18 Magnesium 1.6 mg/dL (1.7-2.3) L 09/15/24 20:18 Total Bilirubin 0.4 mg/dL (0.15-1.2) 09/15/24 20:18 AST 9 U/L (0-32) 09/15/24 20:18 ALT 15 U/L (0-33) 09/15/24 20:18 Alkaline Phosphatase 84 U/L (35-105) 09/15/24 20:18 Creatine Kinase 25 U/L (26-192) L 09/15/24 20:18 C-Reactive Protein 6.7 mg/L (0.0-4.9) H 09/15/24 20:18 Total Protein 6.2 g/dL (6.6-8.7) L 09/15/24 20:18 Albumin 3.4 g/dL (3.5-5.2) L 09/15/24 20:18 Globulin 2.8 g/dL (1.3-4.6) 09/15/24 20:18 TSH 1.08 uIU/mL (0.27-4.20) 09/15/24 20:18 TSH 1.10 uIU/mL (0.27-4.20) 09/15/24 20:18 Random Cortisol 5.27 ug/dL (2.47-19.5) 09/15/24 20:18 Urine Color Yellow (Yellow) 09/15/24 21:55 Urine Appearance Clear (CLEAR) 09/15/24 21:55 Urine pH 6.5 (5-7) 09/15/24 21:55 Ur Specific [place] 1.002 (1.005-1.030) L 09/15/24 21:55 Urine Protein Negative (Negative) 09/15/24 21:55 Urine Glucose (UA) Negative (Normal) 09/15/24 21:55 Urine Ketones Negative (Negative) 09/15/24 21:55 Urine Blood Negative (Negative) 09/15/24 21:55 Urine Nitrate Negative (Negative) 09/15/24 21:55 Urine Bilirubin Negative (Negative) 09/15/24 21:55 Urine Urobilinogen 0.2 mg/dL (Negative) 09/15/24 21:55 Ur Leukocyte Esterase Negative (Negative) 09/15/24 21:55 Urine RBC 0-2 /hpf (0-2) 09/15/24 21:55 Urine WBC 0-5 /hpf (0-5) 09/15/24 21:55 Ur Squamous Epith Cells 0-5 /hpf (0-5) 09/15/24 21:55 Amorphous Sediment Not Reportable 09/15/24 21:55 Urine Bacteria None seen /hpf (NONE) 09/15/24 21:55 Hyaline Casts 0-4 /lpf H 09/15/24 21:55 Salicylates < 0.3 mg/dL (3-10) L 09/15/24 20:18 Urine Opiates Screen Negative ng/mL (Negative) 09/15/24 21:55 Acetaminophen < 5.0 ug/mL (10-30) L 09/15/24 20:18 Ur Barbiturates Screen Negative ng/mL (Negative) 09/15/24 21:55 Ur Phencyclidine Scrn Negative ng/mL (Negative) 09/15/24 21:55 Ur Amphetamines Screen Negative ng/mL (Negative) 09/15/24 21:55 U Benzodiazepines Scrn Negative ng/mL (Negative) 09/15/24 21:55 Urine Cocaine Screen Negative ng/mL (Negative) 09/15/24 21:55 U Marijuana (THC) Screen Positive ng/mL (Negative) H 09/15/24 21:55 Ethyl Alcohol < 10 mg/dL (0-10) 09/15/24 20:18 No radiology studies performed this visit Discharge Plan Discharge Patient Disposition: Admitted As Inpatient Admit Provider: Chace Enriquez Clinical Impression: Headaches due to old head injury, Hypokalemia, Hypotension Condition: Stable Coding Level of Care Code ED Electric Power Line Repairer for Beata Baez
[2024-09-15 22:24] VITALS: BP 87/55; PULSE 54; RESP 18; O2SAT 98
[2024-09-15 22:30] LABS: Bilirubin Urine Negative (Negative); Blood Urine Negative (Negative); Glucose Urine UA Negative (Normal); Ketones Urine Negative (Negative); Leukocyte Esterase Urine Negative (Negative); Nitrate Urine Negative (Negative); Protein Urine Negative (Negative); Specific Gravity, Urine 1.002 (1.005-1.030); Urine Appearance Clear (CLEAR); Urine Color Yellow (Yellow); Urobilinogen Urine 0.2 mg/dL (Negative); pH Urine 6.5 (5-7)
[2024-09-15 22:34] VITALS: BP 102/70; PULSE 62; RESP 18; O2SAT 98
[2024-09-15 22:35] LABS: Add Urine Microscopic? YES; Bacteria Urine None Seen /hpf; Hyaline Casts Urine 0-4 /lpf; RBC Urine 0-2 /hpf (0-2); Squamous Epithelial Cell Urine 0-5 /hpf (0-5); WBC Urine 0-5 /hpf (0-5)
[2024-09-15 22:39] LABS: Amphetamines Screen Urine Negative (Negative); Barbiturates Screen Urine Negative (Negative); Benzodiazepines Screen Urine Negative (Negative); Cocaine Screen Urine Negative (Negative); Opiate Screen Urine Negative (Negative); PCP Screen Urine Negative (Negative); THC Screen Urine Positive (Negative)
--- NOTE | 2024-09-15 22:57 | P.HP_ITS ---
Providers/Chief Complaint 2 Admitting Physician: Chace Enriquez MD Primary Care Provider: CHRIS Ramirez Chief Complaint: LOW BP History of Present Illness Radha Eddy is a 49 year old female with history of sinus venous thrombosis with stability over 1 year ago, past history of diagnosis of schizophrenia, marijuana use in the form of Gummies with history of vomiting, recurrent headaches, traumatic brain injury with history of subdurals that reports she comes in with some vomiting. She denies headache. She states this happens every once in a while and has been going on for quite a while. She has had some low blood pressures lately, and was seen in clinic on August 20. It was inferred at that time she may need to stop her propranolol but she did not do that. In the emergency department she really denies any complaints. The emergency department physician was very concerned her blood pressure was low, with systolic less than 90. She had received approximately 2.9 L and when I saw her multiple blood pressures had a systolic over 90 and a mean arterial blood pressure greater than 65. She has difficulty giving a history, but from what I gather she lives at multiple different family members homes, with her some of the time and daughter some of the time. It looks like she has refused care quite a bit when seeing physicians in clinic. Again she denies any current feelings of nausea, current headache, current dizziness, diarrhea, fever. She is a poor historian. Of note she has several pill bottles in her purse. 1 has multiple different pills in it, which she relates some of them are her muscle relaxant she is pretty sure she has not taken lately. Review of Systems 2 General: Reports: 10 or more systems reviewed and unremarkable except in HPI and below Narrative: Nontoxic-appearing Medications/Allergies Home Medications Medication Instructions Recorded Confirmed Last Taken Type tizanidine 4 mg capsule 4 mg PO BID PRN muscle spasticity 07/18/23 08/20/24 Unknown Rx #90 caps Marijuana gummies PO BID 09/12/23 08/20/24 Unknown History cholecalciferol (vitamin D3) 1,250 50,000 unit PO .weekly #12 caps 09/27/23 08/20/24 Unknown Rx mcg (50,000 unit) capsule cetirizine 10 mg tablet (Zyrtec) 10 mg PO DAILY PRN allergy 12/11/23 08/20/24 Unknown Rx symptoms #30 tabs gabapentin 100 mg capsule 100 mg PO TID 12/11/23 08/20/24 Unknown History ondansetron 4 mg disintegrating 4 mg PO Q6H PRN nausea and 01/13/24 08/20/24 Unknown Rx tablet vomiting #14 tabs mecobalamin (vitamin B12) 1,000 See Rx Instructions .Route 04/23/24 08/20/24 Unknown Rx mcg disintegrating .COMPLEX #30 tabs tablet,sublingual promethazine 25 mg tablet 25 mg PO TID PRN nausea and 06/24/24 08/20/24 Unknown Rx vomiting #60 tabs propranolol 20 mg tablet 20 mg PO BID PRN anxiety #60 tabs 07/23/24 08/20/24 Unknown Rx quetiapine 50 mg tablet (Seroquel) 50 mg PO .HS #30 tabs 07/23/24 08/20/24 Unknown Rx magnesium oxide 400 mg PO BID #60 tabs 08/07/24 08/20/24 Unknown Rx potassium chloride 8 mEq 8 meq PO DAILY #30 caps 08/07/24 08/20/24 Unknown Rx capsule,extended release Allergies Allergy/AdvReac Type Severity Reaction Status Date / Time tree and shrub pollen Allergy Severe ALGY-Difficulty Verified 08/20/24 09:42 Breathing grass pollen Allergy Intermediate ALGY-Rash Verified 08/20/24 09:42 animal dander Allergy Mild ALGY-Difficulty Verified 08/20/24 09:42 Breathing fresh fruits Allergy Mild ALGY-Rash Uncoded 08/20/24 09:42 PFSH Acute 2 PFSH: Medical History (Updated 09/15/24 @ 23:07 by Chace Enriquez MD) Chronic post-traumatic stress disorder Cerebral venous sinus thrombosis Psychiatric care Macrocytosis Frequent falls Ataxia SDH (subdural hematoma) Traumatic brain injury Surgical History No significant past surgical history Social History Smoking and tobacco/nicotine status: former use of tobacco/nicotine Quit status (tobacco/nicotine): has quit using Year quit tobacco: 2020 Former quit date comment: smoked 3 years Second hand smoke exposure: No Substance/Drug Use: never Adopted: No Caregiver/support person: No Lives independently: Yes Household members: spouse Housing: House Marital status: Number of children: 4 Highest education level completed: High School Graduate service: No Current occupational status: unemployed Do you think of yourself as: Straight/Heterosexual Current gender identity: Female Noemy/Orthodoxy: Other Special noemy needs: No Agree to transfusion: Yes Vitals/I&O/Wt Last Vital Signs Temp 97.5 F L 09/15/24 20:54 Pulse 62 09/15/24 22:34 Resp 18 09/15/24 22:34 BP 102/70 09/15/24 22:34 Pulse Ox 98 09/15/24 22:34 O2 Del Method Room Air 09/15/24 22:34 Weight last 48 hrs Weight 55.792 kg Physical Exam 2 Narrative: General exam is a very verbose white female with slight slurred speech, who appears very impulsive. She talks quickly. HEENT: Atraumatic. Pupils equally round. Oropharynx slightly dry Neck is supple Cardiovascular regular rate and rhythm, heart rate 65 when I visited her. No murmur Lungs clear Abdomen soft, no obvious organomegaly exam is deferred Extremities no cyanosis clubbing or edema Skin no rash Neuro no focal deficits Data 09/15/24 20:18 09/15/24 20:18 Other Labs: Magnesium is 1.6 CK20 5 Albumin 3.4, calcium 9.1 TSH and random cortisol are ordered Urinalysis negative Urine drug screen positive for THC Salicylates are pending, alcohol level less than 10 A&P Assessment and plan (1) Hypokalemia: Supplement, recheck tomorrow Telemetry (2) Hypomagnesemia: Supplement (3) Vomiting: Patient reports vomiting, not unusual for her. She denies headache. She reports her last emesis was today. She denies any nausea currently. She has no abdominal pain. Clear liquid diet. This may be related to cyclic hyperemesis syndrome from THC, and would first observed in the hospital to see if significant recurrence. If it recurs in the hospital consider further workup. IV fluids (4) Polypharmacy: Patient has significant polypharmacy, likely contributing to her presentation. Certainly her marijuana Gummies could give her hyperemesis. She is on muscle relaxants which could lower her blood pressure. She also takes hydroxyzine, gabapentin, propranolol. Medicine list will need confirmed. No propranolol, muscle relaxer tonight. (5) Hypotension: The patient was hypotensive on arrival to the ER. She appears nontoxic. This has resolved with significant IV fluid given in the emergency department. May be related to polypharmacy. May be related to propranolol which she kept taking after her visit with the physician on August 20. Note that she was bradycardic on arrival as well. Continue to monitor blood pressure Tomorrow initiate orthostatic blood pressures twice daily Plan History of traumatic brain injury Frequent falls. May be related to polypharmacy, traumatic brain injury. Psychiatric disorder History of sinus venous thrombosis, several MRIs in 2022 demonstrating no change in head CTA this year showing no overall change. Attestations 2 Medical Necessity Statement*: Will need less than 2 midnight stay for evaluation and treatment of hypotension, vomiting, electrolyte abnormality Diagnoses Hypokalemia E87.6 Hypomagnesemia E83.42 Vomiting R11.10 Polypharmacy Z79.899 Hypotension I95.9 Time Spent (min) 53
[2024-09-15 23:06] LABS: Cortisol Random 5.27 ug/dL (2.47-19.5)
[2024-09-15 23:11] LABS: Acetaminophen < 5.0 ug/mL (10-30); Salicylate < 0.3 mg/dL (3-10)
[2024-09-15] MEDS: potassium chloride oral liq 20 mEq/15 mL UDC 40 MEQ PO (23:37)
[2024-09-15] MEDS: lidocaine 1% 5 ML in potassium chloride premix 100 ML 52.5 ML IV (23:38)
[2024-09-15] MEDS: magnesium sulfate premix 2 GM/50 ML PIGGYBACK IV (23:39)
[2024-09-15 23:57] VITALS: BP 101/67; PULSE 60; O2SAT 93
[2024-09-16] VITALS (9 sets, daily range): BP systolic 106–123; BP diastolic 70–82; PULSE 52–82; RESP 17–19; TEMP 36.5–36.7; O2SAT 94–98
[2024-09-16] MEDS: sodium chloride 0.9% 1,000 ML 999 ML IV (00:30)
[2024-09-16] MEDS: pantoprazole 40 mg SDV IVP (00:57)
[2024-09-16] MEDS: enoxaparin 40 mg/0.4 mL Syringe SUBCUT (01:19)
[2024-09-16] MEDS: sodium chloride 0.9% 1,000 ML 100 ML IV (01:33)
[2024-09-16 05:27] LABS: Alanine Aminotransferase 13 U/L (0-33); Albumin Level 3.2 g/dL (3.5-5.2); Alkaline Phosphatase 80 U/L (35-105); Anion Gap 12.1 (5-19); Aspartate Amino Transferase 9 U/L (0-32); Blood Urea Nitrogen 8 mg/dL (6-20); Calcium 8.3 mg/dL (8.5-10.5); Carbon Dioxide 22 mmol/L (22-29); Chloride 110 mmol/L (98-107); Creatinine Clr Calc Pharmacy 89.2718; Globulin 2.6 g/dL (1.3-4.6); Glomerular Filtration Rate 88.2 mL/min (90-130); Glucose 162 mg/dL (65-115); Magnesium 2.1 mg/dL (1.7-2.3); Osmolality Calculated 292 mOsm/kg (285-295); Potassium 4.1 mmol/L (3.5-5.1); Sodium 140 mmol/L (136-145); Total Bilirubin 0.3 mg/dL (0.15-1.2); Total Protein 5.8 g/dL (6.6-8.7)
[2024-09-16 05:36] LABS: Basophils % 0.2 %; Eosinophils % 0.3 %; Hematocrit 32.9 % (36-47); Lymphocytes % 15.7 %; Mean Corpuscular HGB Conc 33.7 g/dL (30-55); Mean Corpuscular Hemoglobin 29.4 pg (27-33); Mean Corpuscular Volume 87.3 fl (85-98); Monocytes # 0.1 10^3/uL (0.2-0.9); Monocytes % 1.5 %; Neutrophils # 4.97 10^3/uL (1.8-7.7); Nucleated Red Blood Cells % 0 %; Platelet Count 257 10^3/cmm (157-399); Red Blood Count 3.77 10^6/uL (3.85-5.65); Red Cell Distribution Width 12.9 % (12.1-15.1); White Blood Count 6.06 10^3/uL (3.29-11.43)
--- NOTE | 2024-09-16 11:36 | PC.NURSE ---
Notified Dr. Dunbar patient stated she took a little blue pill from her Pharm Bottle . Patient explained it is a bottle she puts random pills in and takes one on occassion when she feels she needs something. Patient stated a little blue pill was pulled out last night and randomly form the Pharm Bottle and taken last night. This nurse took all patients medications and place in a sealed bag with a tamper tag and placed in pixis along with 9 one dollar bills.
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
--- NOTE | 2024-09-16 12:21 | PC.SOCIAL ---
Referral for put in, CM contacted patient and obtained a verbal choice. She has no preference. Referral faxed to [facility] at this time
--- NOTE | 2024-09-16 12:24 | PC.SOCIAL ---
Patient is currently on medicaid and is unable to get HH.
--- NOTE | 2024-09-16 14:35 | PC.NURSE ---
Tried to discuss discharge with patient and family member. Patient was having noting to do with medication change. Patient was up and down and getting loud. Dr. Dunbar was called to come to see patient. Dr. Dunbar went over all the medications with patient and daughter again. Verbalized understanding. Patient wanted to ambulate out with daughter.
== END 2024-09-16 13:00 | disposition home health service (06) ==
LOC: ER 22:39 → MEDSURG 23:19
PROVIDERS: Admitting Provider Internal Medicine; Emergency Provider Emergency Medicine; PCP Nurse Practitioner Family; Visit Provider Internal Medicine
DX: E87.6 Hypokalemia (principal); E83.42 Hypomagnesemia; R11.10 Vomiting, unspecified; Z79.899 Other long term (current) drug therapy; I95.9 Hypotension, unspecified; Z91.81 History of falling; F20.9 Schizophrenia, unspecified; Z87.820 Personal history of traumatic brain injury; Z87.891 Personal history of nicotine dependence
CPT/HCPCS: 36415; 80053; 80306; 80307; 81001; 82533; 82550; 83605; 83735; 84443; 85025; 86140; 93005; 96361; 96365; 96367; 96372; 96375; 99285; G0378; J1650; J1720; J2470; J3475; J3480; J7030

== ENCOUNTER → 2024-09-30 10:17 | Outpatient (BNVA) | payer MEDICAID, SELFPAY | PROVIDERS: PCP Nurse Practitioner Family; Visit Provider Nurse Practitioner Family | DX: I95.9 Hypotension, unspecified (principal); R73.9 Hyperglycemia, unspecified | CPT/HCPCS: 80053; 83036 ==

== ENCOUNTER → 2025-01-02 10:31 | Outpatient (BNVA) | payer MEDICAID, SELFPAY | PROVIDERS: PCP Nurse Practitioner Family; Visit Provider Nurse Practitioner Family | DX: R11.0 Nausea (principal); S06.9XAD Unspecified intracranial injury with loss of consciousness status unknown, subsequent encounter; I95.9 Hypotension, unspecified; Z13.6 Encounter for screening for cardiovascular disorders | CPT/HCPCS: 80053; 80061; 84443; 85025 ==